=== PATIENT | female | born 1940 | race Caucasian/White ===

== ENCOUNTER 2017-05-25 00:39 | Emergency (ER) | payer OTHER ==
[2017-05-25 00:56] VITALS: BP 116/81; PULSE 81; TEMP 98; BMI 24.7
--- NOTE | 2017-05-25 01:00 | PDOC ---
History of Present Illness - General Chief Complaint: G Tube Problem Stated Complaint: GTUBE PROBLEM Time Seen by Provider: 05/25/17 00:48 History Source: Family Exam Limitations: Clinical Condition - History of Present Illness Initial Comments: 05/25/17 00:57 Patient is a 76F with history of supranuclear palsy, s/p trach placement in and g-tube placement in 2014 here today complaining of G-tube displacement while being moved at her longterm in [facility]. Her son reports that the tube placed back in at the longterm and that they are requesting imaging to confirm placement. Patient has no other acute issues at this time. Past History - Past Medical History Allergies/Adverse Reactions: Allergies Allergy/AdvReac Type Severity Reaction Status Date / Time levofloxacin [From Levaquin] Allergy Verified 05/25/17 00:50 Home Medications: Ambulatory Orders Acetaminophen [Tylenol] 650 mg GT QID PRN 05/25/17 Albuterol 2.5/Ipratropium 0.5 [Duoneb -] 1 neb IH QID 05/25/17 Bismuth Tribromoph/Petrolatum [Xeroform Petrolatum Dress] 1 each TP DAILY Famotidine [Heartburn Prevention] 20 mg GT BID 05/25/17 Heparin - 5,000 unit SQ BID 05/25/17 Midodrine HCl 10 mg GT Q8H 05/25/17 Mirtazapine [Remeron -] 30 mg GT HS 05/25/17 Nystatin Ointment [Mycostatin Ointment -] 1 applic TP TID 05/25/17 Nystatin/Triamcin [Nystatin-Triamcinolone Cream] 15 gm TP DAILY 05/25/17 Olopatadine HCl [Patanol] 1 drop OD BID 05/25/17 Paroxetine HCl [Paxil] 40 mg GT DAILY 05/25/17 Polyethylene Glycol 3350 [Miralax (For Bowel Prep) -] 17 gm GT DAILY 05/25/17 Polyvinyl Alcohol [Artificial Tears] 1 drop OU TID 05/25/17 Sennosides [Senna] 2 tab GT HS 05/25/17 Silver Sulfadiazine 1% Top Cr [Silvadene -] 1 applic TP DAILY 05/25/17 Sulfamethoxazole/Trimethoprim [Bactrim Ds -] 1 tab GT BID 05/25/17 Zinc Oxide 20% Topical Oint 1 applic NR TID 05/25/17 - Suicide/Smoking/Psychosocial Hx Smoking History: Unknown if ever smoked Review of Systems - Review of Systems Able to Perform ROS?: No (2/2 clinical condition) *Physical Exam - Vital Signs Last Vital Signs Temp Pulse Resp BP Pulse Ox 98 F 81 15 116/81 98 05/25/17 00:48 05/25/17 00:48 05/25/17 00:48 05/25/17 00:48 05/25/17 00:48 - Physical Exam Comments: 05/25/17 00:58 GENERAL: Awake, alert, trached, in no acute distress HEAD: No signs of trauma, normocephalic, atraumatic EYES: PERRLA, EOMI, sclera anicteric, conjunctiva clear ENT: Auricles normal inspection, hearing grossly normal, nares patent, oropharynx clear without exudates. Moist mucosa NECK: Normal ROM, supple, no lymphadenopathy, JVD, or masses LUNGS: No distress, speaks full sentences, clear to auscultation bilaterally HEART: Regular rate and rhythm, normal S1 and S2, no murmurs, rubs or gallops, peripheral pulses normal and equal bilaterally. ABDOMEN: Soft, nontender, normoactive bowel sounds. G tube with gastric contents , no surrounding erythema. No guarding, no rebound. No masses SKIN: Warm, Dry, normal turgor, no rashes or lesions noted. ED Treatment Course - RADIOLOGY Radiology Studies Ordered: Category Date Time Status KUB (KID UR & BLAD) [RAD] Stat Radiology 05/25/17 00:53 Ordered Medical Decision Making - Medical Decision Making 05/25/17 00:59 76F with history of supranuclear palsy s/p trach and g-tube placement here today complaining of dislodging of g-tube. Vital signs stable and normal. G- tube appears appropriately placed. No surrounding erythema. Will attempt to confirm placement. 05/25/17 02:25 First set of imaging inconclusive. Second set shows clear normal placement of g- tube. Will discharge. *DC/Admit/Observation/Transfer Diagnosis at time of Disposition: Problem with gastrostomy tube - Discharge Dispostion Disposition: HOME Condition at time of disposition: Stable Admit: No - Referrals Referrals: Freeman Menon MD [Primary Care Provider] - - Patient Instructions Additional Instructions: Please return if you have any new, worsening or concerning symptoms. Please follow up with your PCP this week. - Post Discharge Activity
--- NOTE | 2017-05-25 02:04 | PDOC ---
Attending Attestation - HPI HPI: 05/25/17 02:06 The patient is a 76 year old female with a significant PMH of supranuclear palsy s/p trach placement and G-tube placement who presents to the emergency department from [facility] with a displaced G-tube that was re-placed. The patients son reports [facility] requests imaging to confirm G-tube placement. The patient has no other complaints. Allergies: Levofloxacin PCP: Dr. Menon - Physicial Exam PE: 05/25/17 02:06 Vitals: Triage Vital signs reviewed General Appearance: Trached. In no acute distress, well nourished well developed, Cardiac: Regular rate and rhythm, no murmurs, no rubs, no gallops, Lungs: Clear to auscultation bilateral, good air movement bilaterally, Abdomen: G tube placed. Soft, nondistended, normal bowel sounds, nontender to palpation Extremities: Full range of motion to all extremities, no cyanosis, clubbing, or edema Skin: Warm and dry, no rashes or lesions, no petechiae Neuro: Cranial Nerves 2-12 grossly intact, Strength intact to all extremities, Sensation intact to all extremities Psych: normal mood, normal affect <Jose Murray - Last Filed: 05/25/17 02:06> - Resident Resident Name: Robert Portillo - ED Attending Attestation I have performed the following: I have examined & evaluated the patient, The case was reviewed & discussed with the resident, I agree w/resident's findings & plan, Exceptions are as noted - Medical Decision Making 05/25/17 04:45 G-tube was replaced at long-term. Here in the emergency department x-ray obtained as directed after Gastrografin on second study placement confirmed Findings, the need for follow-up, strict return instructions discussed with patient. <Nabil Gonzalez - Last Filed: 05/25/17 04:45>
== END 2017-05-25 03:00 ==
LOC: JER 00:39
DX: Z43.1 Encounter for attention to gastrostomy (principal); Z93.0 Tracheostomy status; Z00.00 Encounter for general adult medical examination without abnormal findings
CPT/HCPCS: 74018-TC-FY; 99282-25